=== PATIENT | male | born 1960 | race Caucasian/White ===

== ENCOUNTER 2018-03-31 08:35 | Day surgery (SDC) | payer BC ==
--- NOTE | 2018-03-30 14:31 | RAD REPORT ---
EXAM DESCRIPTION: RAD - Chest Pa And Lat (2 Views) - 03/30/2018 2:24 pm CLINICAL HISTORY: PRE OP Chest pain. COMPARISON: CHEST PA AND LAT 2 VIEW dated 07/03/2014; CHEST PA AND LAT 2 VIEW dated 09/29/2007 FINDINGS: The lungs are clear. The heart is normal in size. No displaced fractures. IMPRESSION: No acute or concerning finding suspected.
[2018-03-30 14:40] LABS: Absolute Lymphocytes (CBC) 2.1 K/uL (0.7-4.9); Absolute Monocytes 0.7 K/uL (0.1-1.3); Absolute Neutrophil 3.7 K/uL (1.8-8.0); Basophils % 0.4 % (0-1.3); Eosinophils % 2.1 % (0-4.4); Hematocrit 43.7 % (39.6-49.0); Lymphocytes % 31.4 % (15.3-44.8); MCH 32.6 pg (27.0-35.0); MPV 8.1 fL (7.6-11.3); Monocytes % 10.5 % (3.3-12.3)
[2018-03-30 14:54] LABS: Potassium 4.3 mmol/L (3.5-5.1)
--- NOTE | 2018-03-31 07:14 | EKG ---
Test Date: 2018-03-30 Test Time: 14:27:13 Welding Tester: MARIZOL MEASUREMENT RESULTS: Intervals: Rate: 62 IN: 162 QRSD: 86 QT: 400 QTc: 406 [place]: P: 50 IN: 162 QRS: 49 T: 59 INTERPRETIVE STATEMENTS: Normal sinus rhythm Normal ECG No previous ECG available for comparison Electronically Signed On 03-31-18 07:13:33 CDT by Juan Braden
[2018-03-31] MEDS ORDERED: CEFOXITIN/SWI 1gm 1 GM/10 ML SYR ONE (08:53)
[2018-03-31] MEDS ORDERED: Ringers Lactate 1,000 ML IV ONE (08:53)
[2018-03-31] MEDS ORDERED: PROPOFOL 200 MG/20 ML VIAL IV ONE (09:52)
[2018-03-31] MEDS ORDERED: FENTANYL CITR 100 MCG/2 ML ONE (09:53)
[2018-03-31] MEDS ORDERED: MIDAZOLAM HCL 2 MG/2 ML INJ ONE (09:53)
[2018-03-31] MEDS ORDERED: LIDOCAINE 1% MPF 5 ML VIAL ONE (09:53)
[2018-03-31] MEDS ORDERED: KETOROLAC 30 MG/ML INJ ONE (10:27)
[2018-03-31] MEDS ORDERED: ONDANSETRON 4 MG/2 ML VIAL ONE (10:29)
[2018-03-31] MEDS ORDERED: MEPERIDINE HCL 50 MG/ML AMP ONE (11:08)
[2018-03-31] MEDS ORDERED: HYDROCODONE/APAP 7.5/325 MG TAB ONE (11:58)
--- NOTE | 2018-03-31 16:37 | OP ---
Date of Procedure: 03/31/2018 Surgeon: Galen Rizo MD Preoperative Diagnosis: Thrombosed hemorrhoids. Postoperative Diagnosis: Thrombosed hemorrhoids. Procedure: Exam under anesthesia, rigid proctoscopy, and complex hemorrhoidectomy x2. Estimated Blood Loss: Minimal. Specimen: Right anterior and right posterior thrombosed hemorrhoids. Anesthesia: General. Complications: None. Disposition: The patient tolerated the procedure in stable condition, taken to Recovery in good gene ral condition. Findings: As above. Procedure In Detail: The patient was brought to the OR and placed in supine position. General anest hesia was begun. The patient was placed in the lithotomy position. Prepped and draped in the usual sterile fashion, and then exam under anesthesia, rigid proctoscopy performed. The patient did have i nternal hemorrhoids. However, those were not thrombosed. There were hemorrhoids on the left side as well but they were not thrombosed. There were 2 large external and internal hemorrhoids that were t hrombosed on the right side, 1 in the anterior and 1 in the posterior aspect. Subsequently, Marcaine 0.5% was infiltrated locally and Harmonic Scalpel was utilized and both thrombosed hemorrhoids were excised. All the clots were removed and sent to Pathology as specimen after being appropriately labe led. Bleeding controlled with cautery, and then sterile dressing was applied. The patient was awakened and taken to Recovery in good general condition. /MODL Voice ID: [id number] Report ID: [id number]
--- NOTE | 2018-03-31 16:40 | DS ---
Date of Discharge: 03/31/2018 Discharge Note: The patient will go to Day Surgery and home when stable. Disposition: Home. Condition: Stable. Discharge Instructions: Resume home medications and diet. Activity as tolerated. No heavy lifting. Remove outer dressing in a.m. Sitz baths q.i.d. High-fiber diet. Colace 100 mg p.o. b.i.d., Proct ofoam HC 2.5% to anus b.i.d., Metamucil 1 tablespoon p.o. t.i.d., Tylenol No. 3 one tablet p.o. q.4 p .r.n. pain. Follow up in my office in 2 weeks. Call for appointment. AL/BINDU Voice ID: [id number] Report ID: [id number]
== END 2018-03-31 12:29 | disposition home or self-care (01) ==
LOC: OR 08:35
PROVIDERS: ATTEND Surgery
PROC: 0DJD8ZZ Inspection of Lower Intestinal Tract, Via Natural or Artificial Opening Endoscopic (ICD-10-PCS; 2018-03-31)
PROC: 06BY0ZC Excision of Hemorrhoidal Plexus, Open Approach (ICD-10-PCS; principal; 2018-03-31 10:15)
DX: K64.5 Perianal venous thrombosis (principal); K64.8 Other hemorrhoids; G47.33 Obstructive sleep apnea (adult) (pediatric)
CPT/HCPCS: 36415; 71046; 80048; 85025; 88304; 93005; J2175; J2250; J2405; J2704; J3010

== ENCOUNTER 2024-06-08 14:33 | Emergency (ER) | payer BC ==
--- NOTE | 2024-06-08 15:21 | RAD REPORT ---
EXAMINATION: ONE VIEW CHEST XR CLINICAL INDICATION: CHEST PAIN TECHNIQUE: Frontal chest projection is submitted. Examination is limited by patient positioning and t echnique. COMPARISON: 03/30/2018 FINDINGS: The lungs are well inflated and clear. The heart is upper limit of normal in size. No displaced fract ures identified. IMPRESSION: No acute intrathoracic abnormalities.
[2024-06-08] MEDS ORDERED: ASPIRIN 81 MG CHEWABLE TABLET ONE (15:26)
[2024-06-08 15:39] LABS: Absolute Eosinophils 0.1 K/uL (0-0.5); Absolute Lymphocytes (CBC) 1.5 K/uL (0.7-4.9); Absolute Monocytes 0.3 K/uL (0.1-1.3); Absolute Neutrophil 2.5 K/uL (1.8-8.0); Basophils % 0.5 % (0-1.3); Eosinophils % 2.2 % (0-4.4); Hematocrit 42.1 % (39.6-49.0); Hemoglobin 14.1 g/dL (13.6-17.9); MCH 31.5 pg (27.0-35.0); MCHC 33.4 g/dL (32.0-36.0); MCV 94.2 fL (80-100); MPV 7.7 fL (7.6-11.3); Monocytes % 7.7 % (3.3-12.3); Neutrophils % 56.6 % (41.7-73.7); Nucleated Red Blood Cells % 0.2 % (0-0); Platelets 232 thou/uL (152-406); Protime INR 1.07; RBC Red Blood Cell Count 4.47 M/uL (4.33-5.43)
[2024-06-08 15:51] LABS: ALT/SGPT 25 U/L (16-61); AST/SGOT 20 U/L (15-37); Albumin 3.4 g/dL (3.4-5.0); Alkaline Phosphatase 72 U/L (45-117); Anion Gap 8.3 mEq/L (5.0-15.0); BUN Blood Urea Nitrogen 13 mg/dL (7-18); Bicarbonate 26 mEq/L (21-32); Bilirubin Total 0.6 mg/dL (0.2-1.0); Globulin 3.3 g/dL (2.3-3.5); Glomerular Filtration Rate 73 ml/min (=/>90); Glucose Level 89 mg/dL (74-106); Magnesium 2.1 mg/dL (1.6-2.4); NT PRO-BNP 58 pg/mL (<125); Potassium 4.3 mEq/L (3.5-5.1); Protein, Total 6.7 g/dL (6.4-8.2); Sodium Level 138 mEq/L (136-145); Troponin High Sensitivity 4.3 pg/mL (<58.9)
[2024-06-08 15:55] LABS: Bilirubin Direct < 0.2 mg/dL (0-0.2); Bilirubin Indirect, Calculated 0.4 mg/dL (0.2-0.8)
--- NOTE | 2024-06-08 18:04 | ER ---
Nurse's Notes [facility] Name: Sukhjinder Nguyen Age: 63 yrs Sex: Male : 1960 Arrival Date: 06/08/2024 Time: 14:33 Bed 14 Private MD: Diagnosis: Chest pain, unspecified Presentation: 06/08 14:43 Chief complaint: Patient states: midsternal chest pain for about 30 minutes, has been iw having a lot of stress lightly. Coronavirus screen: At this time, the client does not indicate any symptoms associated with coronavirus-19. Ebola Screen: No symptoms or risks identified at this time. Initial Sepsis Screen: Does the patient meet any 2 criteria? No. Patient's initial sepsis screen is negative. Does the patient have a suspected source of infection? No. Patient's initial sepsis screen is negative. Risk Assessment: Do you want to hurt yourself or someone else?. Onset of symptoms was June 08, 2024. 14:43 Method Of Arrival: Ambulatory iw 14:43 Acuity: NICOLE 3 iw Historical: - Allergies: 14:46 No Known Allergies; iw - PMHx: 14:46 Hypercholesterolemia; iw - Immunization history:: Adult Immunizations. - Infectious Disease History:: Denies. - Social history:: Smoking status: Patient denies any tobacco usage or history of. Screenin:02 [facility] ED Fall Risk Assessment (Adult) History of falling in the last 3 months, ll1 including since admission No falls in past 3 months (0 pts) Confusion or Disorientation No (0 pts) Intoxicated or Sedated No (0 pts) Impaired Gait No (0 pts) Mobility Assist Device Used No (0 pt) Altered Elimination No (0 pt) Score/Fall Risk Level 0 - 2 = Low Risk Maintained a safe environment, Hourly rounding (assess needs \T\ fall precautionary measures) done. Abuse screen: Denies threats or abuse. Nutritional screening: No deficits noted. Tuberculosis screening: No symptoms or risk factors identified. Assessment: 16:01 General: Appears in no apparent distress. Behavior is calm, cooperative, appropriate ll1 for age. Pain: Complains of pain in neck Quality of pain is described as aching, Is chronic. Cardiovascular: Reports CP has resolved Chest pain is denied. 16:23 Reassessment: No changes from previously documented assessment. Patient and/or family ll1 updated on plan of care and expected duration. Pain level reassessed. 17:00 Reassessment: No changes from previously documented assessment. Gait steady from ll1 restroom. No CP or dizziness Patient states feeling better. 17:57 Reassessment: No changes from previously documented assessment. Patient and/or family ll1 updated on plan of care and expected duration. Pain level reassessed. Patient is alert, oriented x 3, equal unlabored respirations, skin warm/dry/pink. 18:18 Reassessment: No changes from previously documented assessment. Patient and/or family ll1 updated on plan of care and expected duration. Pain level reassessed. Patient is alert, oriented x 3, equal unlabored respirations, skin warm/dry/pink. 18:19 Pain: Pain does not radiate. Pain began 4 hours ago. ll1 Vital Signs: 14:45 BP 164 / 66; Pulse 59; Resp 16; Temp 97.9; Pulse Ox 100% on R/A; iw 15:59 Pulse 61; ll1 16:01 BP 119 / 91; Pulse 61; Resp 15; Pulse Ox 100% ; Pain 0/10; ll1 16:23 BP 124 / 77; Pulse 62; Pulse Ox 100% on R/A; ll1 17:16 BP 119 / 82; Pulse 59; Resp 16; Pulse Ox 100% on R/A; ll1 17:57 BP 124 / 76; Pulse 62; Resp 15; ll1 18:18 BP 131 / 93; Pulse 60; Resp 16; Pulse Ox 100% ; Pain 0/10; ll1 16:01 Pain Scale: Adult ll1 18:18 Pain Scale: Adult ll1 Vitals: 15:59 Cardiac Rhythm Assessment Regular Sinus rhythm. ll1 ED Course: 14:34 Patient arrived in ED. im 14:43 Christine Leahy PA-C is PHCP. sb4 14:43 Rosendo Sainz MD is Attending Physician. sb4 14:45 Triage completed. iw 14:45 Arm band placed on. iw 15:19 XRAY Chest (1 view) In Process Unspecified. EDMS 15:26 Initial lab(s) drawn, by me, sent to lab. Inserted saline lock: 18 gauge in right zm antecubital area, using aseptic technique. Blood collected. Flushed with 10 mL NS. 15:26 Basic Metabolic Panel Sent. zm 15:26 CBC with Diff Sent. zm 15:26 LFT's Sent. zm 15:26 Magnesium Sent. zm 15:26 NT PRO-BNP Sent. zm 15:26 PT-INR Sent. zm 15:26 Troponin HS Sent. zm 15:27 EKG done, by ED staff, reviewed by Christine Leahy PA-C. zm 15:58 Horace Sharp, RN is Primary Nurse. ll1 15:58 Provided Education on: ER procedures and process. placed in exam 14, patient care ll1 assumed. Client placed on continuous cardiac and pulse oximetry monitoring. NIBP monitoring applied. cafeteria cook on. 16:02 No provider procedures requiring assistance completed. Patient maintains SpO2 ll1 saturation greater than 95% on room air. 16:03 Patient has correct armband on for positive identification. Bed in low position. Client ll1 placed on continuous cardiac and pulse oximetry monitoring. NIBP monitoring applied. cafeteria cook on. 17:36 Troponin High Sensitivity Sent. ll1 17:47 Troponin High Sensitivity Sent. sb4 18:03 Gilbert De MD is Referral Physician. sb4 18:18 IV discontinued, intact, bleeding controlled, No redness/swelling at site. Pressure ll1 dressing applied. Administered Medications: 15:32 Drug: Aspirin PO Chewable Tablet 324 mg PO once; 81 mg tablets x 4 Route: PO; iw 18:19 Follow up: Response: No adverse reaction ll1 Medication: 17:17 VIS not applicable for this client. ll1 Outcome: 18:04 Discharge ordered by . sb4 18:19 Discharged to home ambulatory, ll1 18:19 Condition: stable 18:19 Discharge instructions given to patient, Instructed on discharge instructions, follow up and referral plans. Demonstrated understanding of instructions, follow-up care, 18:19 Patient left the ED. ll1 Signatures: Dispatcher [employer] EDTika Milton RN RN iw Lewis, Lynsay, RN RN ll1 Lilian Foy Sophia, PA-C PA-C sb4 Alea Johnson
--- NOTE | 2024-06-08 18:04 | EDPHYS ---
Physician Documentation [facility] Name: Sukhjinder Nguyen Age: 63 yrs Sex: Male : 1960 Arrival Date: 06/08/2024 Time: 14:33 Bed 14 Private MD: ED Physician Rosendo Sainz HPI: 06/08 14:52 This 63 yrs old Male presents to ER via Ambulatory with complaints of Chest Pain, sb4 Dizziness. 14:52 multiple episodes of chest pains today that resolve with rest. denies any current pain. sb4 describes the pain as "squeezing" denies radiation of pain. endorses associated dizziness. no shortness of breath, nausea, or vomiting. denies any known cardiac history . Historical: - Allergies: 14:46 No Known Allergies; iw - PMHx: 14:46 Hypercholesterolemia; iw - Immunization history:: Adult Immunizations. - Infectious Disease History:: Denies. - Social history:: Smoking status: Patient denies any tobacco usage or history of. ROS: 14:52 Constitutional: Negative for fever, chills, and weight loss, sb4 14:52 Cardiovascular: Positive for chest pain, 14:52 Neuro: Positive for dizziness, 14:52 All other systems are negative, Exam: 14:52 Constitutional: This is a well developed, well nourished patient who is awake, alert, sb4 and in no acute distress. Head/Face: Normocephalic, atraumatic. Eyes: Extra-ocular motions intact. Periorbital areas with no swelling, redness, or edema. ENT: Mucous membranes moist. Cardiovascular: Regular rate and rhythm with a normal S1 and S2. Respiratory: No increased work of breathing, no retractions or nasal flaring. Abdomen/GI: Soft, non-tender, no distension. MS/ Extremity: Pulses equal, no cyanosis. Neurovascular intact. Full, normal range of motion. Neuro: Awake and alert, GCS 15, oriented to person, place, time, and situation. Motor strength 5/5 in all extremities. Sensory grossly intact. Vital Signs: 14:45 BP 164 / 66; Pulse 59; Resp 16; Temp 97.9; Pulse Ox 100% on R/A; iw 15:59 Pulse 61; ll1 16:01 BP 119 / 91; Pulse 61; Resp 15; Pulse Ox 100% ; Pain 0/10; ll1 16:23 BP 124 / 77; Pulse 62; Pulse Ox 100% on R/A; ll1 17:16 BP 119 / 82; Pulse 59; Resp 16; Pulse Ox 100% on R/A; ll1 17:57 BP 124 / 76; Pulse 62; Resp 15; ll1 18:18 BP 131 / 93; Pulse 60; Resp 16; Pulse Ox 100% ; Pain 0/10; ll1 16:01 Pain Scale: Adult ll1 18:18 Pain Scale: Adult ll1 MDM: 14:47 Medical Screening Exam initiated gm 22:31 Data reviewed: vital signs, nurses notes, lab test result(s), EKG, radiologic studies, sb4 and as a result, I will discharge patient. Consideration of Admission/Observation Escalation of care including admission/observation considered. Scoring Tools HEART Score: History: ECG: Age: Risk Factors: 1 or 2 risk factors (1), Troponin: Total Score = 3. Counseling: I had a detailed discussion with the patient and/or guardian regarding the historical points, exam findings, and any diagnostic results supporting the discharge/admit diagnosis, the presence of at least one elevated blood pressure reading (>120/80) during this emergency department visit, lab results, radiology results, the need for outpatient follow up, a telesales team leader, to return to the emergency department if symptoms worsen or persist or if there are any questions or concerns that arise at home. Special discussion: Based on the patient's history, exam, and Dx evaluation, there is no indication for emergent intervention or inpatient Tx. It is understood by the patient/guardian that if the Sx's persist or worsen they need to return immediately for re-evaluation. 06/08 14:51 Order name: Basic Metabolic Panel; Complete Time: 15:57 sb4 06/08 14:51 Order name: CBC with Diff; Complete Time: 15:40 sb4 06/08 14:51 Order name: LFT's; Complete Time: 15:57 sb4 06/08 14:51 Order name: Magnesium; Complete Time: 15:57 sb4 06/08 14:51 Order name: NT PRO-BNP; Complete Time: 15:57 sb4 06/08 14:51 Order name: PT-INR; Complete Time: 15:39 sb4 06/08 14:51 Order name: Troponin HS; Complete Time: 15:57 sb4 06/08 17:02 Order name: Troponin High Sensitivity; Complete Time: 18:01 sb4 06/08 14:51 Order name: XRAY Chest (1 view); Complete Time: 15:22 sb4 06/08 14:51 Order name: Cardiac monitoring; Complete Time: 15:26 sb4 06/08 14:51 Order name: EKG - Nurse/Tech; Complete Time: 15:21 sb4 06/08 14:51 Order name: IV Saline Lock; Complete Time: 15:26 sb4 06/08 14:51 Order name: Labs collected and sent; Complete Time: 15:26 sb4 06/08 14:51 Order name: O2 Per Protocol; Complete Time: 15:27 sb4 06/08 14:51 Order name: O2 Sat Monitoring; Complete Time: 15:26 sb4 06/08 15:59 Order name: Misc. Order: repeat trop and ekg at 1730; Complete Time: 17:47 sb4 06/08 17:02 Order name: EKG - Nurse/Tech; Complete Time: 17:47 sb4 EC:51 Rate is 61 beats/min. Rhythm is regular, Normal Sinus Rhythm. HI interval is normal at sb4 180 msec. QRS interval is normal at 88 msec. QT interval is normal at 412 msec. No Q waves. T waves are Normal. No ST changes noted. Clinical impression: No evidence of ischemia. Interpreted by me. Reviewed by me. 17:52 Rate is 65 beats/min. Rhythm is regular, Normal Sinus Rhythm. HI interval is normal at sb4 204 msec. QRS interval is normal at 88 msec. QT interval is normal at 408 msec. No Q waves. T waves are Normal. No ST changes noted. Clinical impression: Normal ECG and No evidence of ischemia. Interpreted by me. Reviewed by me. Administered Medications: 15:32 Drug: Aspirin PO Chewable Tablet 324 mg PO once; 81 mg tablets x 4 Route: PO; iw 18:19 Follow up: Response: No adverse reaction ll1 Disposition Summary: 06/08/24 18:04 Discharge Ordered Notes: Location: Home sb4 Problem: new sb4 Symptoms: have improved sb4 Condition: Stable sb4 Diagnosis - Chest pain, unspecified sb4 Followup: sb4 - With: Gilbert De MD - When: 2 - 3 days - Reason: Recheck today's complaints, Re-evaluation by your physician Discharge Instructions: - Discharge Summary Sheet sb4 - Nonspecific Chest Pain, Adult, [id number] sb4 Forms: - Patient Portal Instructions sb4 - Leadership Thank You Letter sb4 Addendum: 06/13/2024 15:28 Co-signature as Attending Physician, Rosendo Sainz MD I agree with the assessment and c hughes plan of care. Signatures: Dispatcher [employer] EDRosendo Gatica MD MD cha Williams, Irene RN RN iw Horace Sharp RN RN ll1 Christine Leahy, PAIrvin PA-C sb4 Corrections: (The following items were deleted from the chart) 06/08 14:51 14:51 BASIC METABOLIC PANEL+C.LAB.BRZ ordered. EDMS EDMS 14:51 14:51 CBC+H.LAB.BRZ ordered. EDMS EDMS 14:51 14:51 HEPATIC FUNCTION+C.LAB.BRZ ordered. EDMS EDMS 14:51 14:51 MAGNESIUM+C.LAB.BRZ ordered. EDMS EDMS 14:51 14:51 PROBNP+C.LAB.BRZ ordered. EDMS EDMS 14:51 14:51 PROTIME (+INR)+COAG.LAB.BRZ ordered. EDMS EDMS 14:51 14:51 Troponin High Sensitivity+C.LAB.BRZ ordered. EDMS EDMS 14:51 14:51 Chest Single View+RAD.RAD.BRZ ordered. EDMS EDMS
[2024-06-08 22:55] VITALS: TEMP 97.9; O2SAT 100
[2024-06-08 23:06] VITALS: BP 131/93
--- NOTE | 2024-06-09 12:41 | EKG ---
Test Date: 2024-06-08 Test Time: 17:44:17 Customer Engineer: LML MEASUREMENT RESULTS: Intervals: Rate: 65 MI: 204 QRSD: 88 QT: 408 QTc: 424 [place]: P: 44 MI: 204 QRS: 16 T: 15 INTERPRETIVE STATEMENTS: Normal sinus rhythm Normal ECG Compared to ECG 03/30/2018 14:27:13 No significant changes Electronically Signed On 06-09-24 12:39:51 TECHNICAL SUPPORT SPECIALIST by Gato Morales
--- NOTE | 2024-06-19 11:24 | EKG ---
Test Date: 2024-06-08 Test Time: 14:42:44 Mirror Finishing Machine Operator: ANTHONY MEASUREMENT RESULTS: Intervals: Rate: 61 OR: 180 QRSD: 88 QT: 412 QTc: 414 [place]: P: 22 OR: 180 QRS: -1 T: 20 INTERPRETIVE STATEMENTS: Normal sinus rhythm Low voltage QRS Cannot rule out Anterior infarct, age undetermined Abnormal ECG Compared to ECG 03/30/2018 14:27:13 Low QRS voltage now present Myocardial infarct finding now present Electronically Signed On 06-19-24 11:16:23 MONITORING MANAGER by Gato Morales
== END 2024-06-08 18:19 | disposition home or self-care (01) ==
LOC: ER 14:33
DX: R07.9 Chest pain, unspecified (principal); E78.00 Pure hypercholesterolemia, unspecified
CPT/HCPCS: 36415; 71045; 80048; 80076; 83735; 83880; 84484; 85025; 85610; 93005; 99285